=== PATIENT | female | born 2000 | race Caucasian/White ===

== ENCOUNTER 2023-07-26 17:09 | Emergency (ER) | payer BC, OTHER ==
[2023-07-26] MEDS ORDERED: Ibuprofen 200 MG TAB ONE (18:20)
== END 2023-07-26 18:42 | disposition home or self-care (01) ==
LOC: ERS 17:09
DX: S59.912A Unspecified injury of left forearm, initial encounter (principal); V89.2XXA Person injured in unspecified motor-vehicle accident, traffic, initial encounter